=== PATIENT | male | born 1985 | race Two or more races ===

== ENCOUNTER → 2022-05-12 | Emergency (ER) | payer OTHER ==
[~2022-05-12] VITALS: Ht 167.6 cm; Wt 72.6 kg
[~2022-05-12] MED LIST: AMOX1TAB5 PO; INTESTINEX680 M1 PO
== END | disposition home or self-care (01) ==
LOC: ER 00:09
DX: S61.212A Laceration without foreign body of right middle finger without damage to nail, initial encounter (principal); W45.8XXA Other foreign body or object entering through skin, initial encounter; Y93.89 Activity, other specified; Y92.9 Unspecified place or not applicable; Y99.9 Unspecified external cause status